=== PATIENT | female | born 1980 | race Caucasian/White ===

== ENCOUNTER 2016-11-22 23:45 | Outpatient (CLI) | payer BC ==
[~2016-11-22] VITALS: Ht 154.9 cm; Wt 63.6 kg
[~2016-11-22 23:45] MED LIST: NAPROSYN500 MG PO; NORCO 325 MG-51 TAB PO; PERCOCET 325 MG1 TA2 PO; PRENATAL1 TA1 PO; ZOFRAN ODT4 MG PO
[2016-11-23 00:15] VITALS: BP 105/69; PULSE 62; TEMP 97.5
== END 2016-11-23 01:02 | disposition home or self-care (01) ==
LOC: LDRO 23:45
DX: O36.8130 Decreased fetal movements, third trimester, not applicable or unspecified (principal); Z3A.39 39 weeks gestation of pregnancy

== ENCOUNTER 2016-11-25 22:55 | Inpatient (IN) | payer BC ==
[~2016-11-25] VITALS: Ht 154.9 cm; Wt 63.6 kg
[2016-11-25 23:30] VITALS: BP 114/76; PULSE 60; TEMP 97.9
[2016-11-26] VITALS (44 sets, daily range): BP systolic 90–142; BP diastolic 42–84; PULSE 50–97; TEMP 96.8–97.5
[2016-11-26 00:19] LABS: BASO % 0.3 % (0.0-2.0); EOS # 0.7 (0.0-0.7); EOS % 7.2 % (0-4.0); GRAN # 6.3 (1.4-6.5); GRAN % 64.7 % (42.2-75.2); LYMPH % 20.8 % (20.0-51.0); MEAN CELL VOLUME 88 fl (80.0-100.0); MEAN CORPUSCULAR HGB CONC 35 g/dl (33.0-37.0); MEAN PLATELET VOLUME 12.8 fl (7.4-10.4); MONO # 0.6 (0.1-0.6); PLATELET COUNT 127 K/mm3 (130-400); RED BLOOD COUNT 3.81 M/mm3 (4.10-5.30); REDCELL DISTRIBUTION WIDTH-CV 12.6 % (11.5-14.5); WHITE BLOOD COUNT 9.7 K/mm3 (4.8-10.8)
[2016-11-26 00:20] LABS: HEMATOCRIT 33.6 % (37.0-47.0); HEMOGLOBIN 11.8 g/dl (12.5-16.0); MEAN CORPUSCULAR HEMOGLOBIN 31 pg (27.0-31.0)
[2016-11-26 13:43] LABS: HEMATOCRIT 29.8 % (37.0-47.0)
[2016-11-27] VITALS: BP 97/63; PULSE 62; TEMP 97.9
[2016-11-27 07:46] LABS: BASO % 0.1 % (0.0-2.0); EOS # 0.4 (0.0-0.7); EOS % 3.9 % (0-4.0); GRAN # 7.6 (1.4-6.5); GRAN % 81.9 % (42.2-75.2); LYMPH # 0.8 (1.2-3.4); LYMPH % 9.1 % (20.0-51.0); MEAN CELL VOLUME 92 fl (80.0-100.0); MEAN CORPUSCULAR HGB CONC 34 g/dl (33.0-37.0); MEAN PLATELET VOLUME 12.1 fl (7.4-10.4); MONO # 0.4 (0.1-0.6); MONO % 4.3 % (1.7-9.3); PLATELET COUNT 83 K/mm3 (130-400); RED BLOOD COUNT 3.04 M/mm3 (4.10-5.30); REDCELL DISTRIBUTION WIDTH-CV 12.8 % (11.5-14.5); WHITE BLOOD COUNT 9.2 K/mm3 (4.8-10.8)
[2016-11-27 08:00] VITALS: BP 108/64; PULSE 62; TEMP 97.7
[2016-11-27 08:00] LABS: HEMATOCRIT 27.9 % (37.0-47.0); HEMOGLOBIN 9.5 g/dl (12.5-16.0); MEAN CORPUSCULAR HEMOGLOBIN 31 pg (27.0-31.0)
[2016-11-27] MEDS ORDERED: IBU800 M1 PO (09:19)
[2016-11-27] MEDS ORDERED: PERCOCET 325 MG1 TA2 PO (09:20)
[2016-11-27 15:30] VITALS: BP 98/55; PULSE 65; TEMP 97.9
[2016-11-27 20:00] VITALS: BP 112/63; PULSE 70; TEMP 98.3
[2016-11-28 07:15] VITALS: BP 110/61; PULSE 70; TEMP 97.7
[2016-11-28 07:24] LABS: MEAN CELL VOLUME 91 fl (80.0-100.0); MEAN CORPUSCULAR HGB CONC 34 g/dl (33.0-37.0); MEAN PLATELET VOLUME 11.2 fl (7.4-10.4); PLATELET COUNT 92 K/mm3 (130-400); RED BLOOD COUNT 2.93 M/mm3 (4.10-5.30); REDCELL DISTRIBUTION WIDTH-CV 12.7 % (11.5-14.5); WHITE BLOOD COUNT 9.6 K/mm3 (4.8-10.8)
[2016-11-28 07:25] LABS: HEMATOCRIT 26.7 % (37.0-47.0); HEMOGLOBIN 9.1 g/dl (12.5-16.0); MEAN CORPUSCULAR HEMOGLOBIN 31 pg (27.0-31.0)
== END 2016-11-28 15:00 | disposition home or self-care (01) | DRG 766 ==
LOC: LDRO 22:55 → LDR 23:39 → OB 23:39
PROVIDERS: Obstetrics & Gynecology; Student in an Organized Health Care Education/Training Program
PROC: 10D00Z1 Extraction of Products of Conception, Low, Open Approach (ICD-10-PCS; principal; 2016-11-26)
PROC: 0UT70ZZ Resection of Bilateral Fallopian Tubes, Open Approach (ICD-10-PCS; 2016-11-26)
DX: O34.211 Maternal care for low transverse scar from previous cesarean delivery (principal); N85.8 Other specified noninflammatory disorders of uterus; O48.0 Post-term pregnancy; O76 Abnormality in fetal heart rate and rhythm complicating labor and delivery; O62.0 Primary inadequate contractions; Z40.09 Encounter for prophylactic removal of other organ; Z37.0 Single live birth; Z3A.40 40 weeks gestation of pregnancy
CPT/HCPCS: J0690; J1885; J2270; J2370; J2400; J2405; J2590; J7120

== ENCOUNTER 2019-03-12 10:00 | Emergency (ER) | payer BC ==
[~2019-03-12 10:00] MED LIST changes: +IBU800 M1 PO
[2019-03-12 10:06] VITALS: BP 116/58; TEMP 97.4
[2019-03-12] MEDS ORDERED: ULTRAM 50MG TAB50 MG PO (11:12)
[2019-03-12] MEDS ORDERED: CRUTCHES MC (11:12)
[2019-03-12 11:50] VITALS: PULSE 62
== END 2019-03-12 11:50 | disposition home or self-care (01) ==
LOC: COL.ER 10:00
DX: S93.401A Sprain of unspecified ligament of right ankle, initial encounter (principal); X50.1XXA Overexertion from prolonged static or awkward postures, initial encounter; Y92.22 Religious institution as the place of occurrence of the external cause
CPT/HCPCS: Q4045